=== PATIENT | female | born 1950 | race Caucasian/White ===

== ENCOUNTER 2020-03-28 09:49 | Day surgery (SDC) | payer MEDICARE, OTHER ==
[~2020-03-28 09:49] MED LIST: Acetaminophen 325 MG Tab PO SCH; EPINEPHrine 1 MG/ML SDV ONE; Lidocaine 1%/Sod Bicarbonate in NS 8.4% 1 ML Syringe IDERM PRN; Morphine 8 MG, EPINEPHrine 0.3 MG, Cefuroxime 750 MG, Ketorolac 30 MG, Sodium Chloride ... PRN; Pregabalin 25 MG Cap PO SCH; Ropivacaine 0.5% 5 MG/ML 30 ML SDV ONE; Sodium Chloride 0.9% 10 ML Syringe FLUSH PRN; oxyCODONE ER 10 MG TAB.ER PO SCH
[2020-03-28] MEDS: Lactated Ringers 1,000 ML IV SCH ×2 (10:15→16:32)
[2020-03-28] MEDS ORDERED: Bupivacaine 0.25% 10 ML SDV ONE (10:16)
[2020-03-28] MEDS ORDERED: Vancomycin 1 GM SDV ONE (10:16)
--- NOTE | 2020-03-28 10:20 | PCM.PREANE ---
Preanesthetic Assessment - Procedure Proposed Procedure: Left total knee arthroplasty - Anesthesia/Transfusion/Family Hx Anesthesia History: No Prior Anesthesia Family History of Anesthesia Reaction: No Transfusion History: No Prior Transfusion(s) - Review of Systems General: No Symptoms Pulmonary: No Symptoms Cardiovascular: No Symptoms Gastrointestinal: No Symptoms Neurological: No Symptoms Other: Reports: Easy Bruising, Thyroid Problems (hypothyroid) - Physical Assessment NPO Status Date: 03/27/20 NPO Status Time: 00:00 Height: 1.63 m Weight: 75.6 kg ASA Class: 2 Mental Status: Alert & Oriented x3 Dentition: Reports: Normal Dentition, Friona(s) Thyro-Mental Finger Breadths: 3 Mouth Opening Finger Breadths: 3 ROM/Head Extension: Full Lungs: Clear to Auscultation, Normal Respiratory Effort Cardiovascular: Regular Rate, Regular Rhythm - Lab Values: Laboratory Last Values MRSA (PCR) Negative 03/16/20 15:45 - Imaging/EKG Impressions: EKG SR rate 75 - Allergies Allergies/Adverse Reactions: Allergies Allergy/AdvReac Type Severity Reaction Status Date / Time No Known Allergies Allergy Verified 03/25/20 12:28 - Anesthesia Plan Pre-Op Medication Ordered: None - Acknowledgements Anesthesia Type Planned: Spinal, Regional Block (adductor canal block for post- op pain control) Pt an Appropriate Candidate for the Planned Anesthesia: Yes Alternatives and Risks of Anesthesia Discussed w Pt/Guardian: Yes Pt/Guardian Understands and Agrees with Anesthesia Plan: Yes PreAnesthesia Questionnaire HEENT History: Reports: Impaired Vision Cardiovascular History: Reports: Hypertension Respiratory History: Reports: Other (See Below) Other Respiratory History: cough, pharyngitis Gastrointestinal History: Reports: Colon Polyp, GERD Genitourinary History: Reports: Renal Calculus, Other (See Below) Other Genitourinary History: CKD III 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 Musculoskeletal History: Reports: Arthritis Neurological History: Reports: Other (See Below) Other Neuro History: tremor Psychiatric History: Reports: None Endocrine/Metabolic History: Reports: Hypothyroidism Hematologic History: Reports: None Immunologic History: Reports: None Oncologic (Cancer) History: Reports: None Dermatologic History: Reports: Other (See Below) Other Dermatologic History: lip lesion - Past Surgical History Head Surgeries/Procedures: Reports: None HEENT Surgical History: Reports: None Respiratory Surgical History: Reports: None GI Surgical History: Reports: Colonoscopy Female Surgical History: Reports: None Male Surgical History: Reports: None Endocrine Surgical History: Reports: None Neurological Surgical History: Reports: None Musculoskeletal Surgical History: Reports: Arthroscopic Knee, Other (See Below) Other Musculoskeletal Surgeries/Procedures:: right ankle/foot surgery Oncologic Surgical History: Reports: None Dermatological Surgical History: Reports: None - SUBSTANCE USE Tobacco Use Status *Q: Former Tobacco User Tobacco Use Within Last Twelve Months: No Second Hand Smoke Exposure: No Days Per Week of Alcohol Use: 1 Number of Drinks Per Day: 0 Total Drinks Per Week: 0 Recreational Drug Use History: No - HOME MEDS Home Medications: Home Meds Losartan/Hydrochlorothiazide [Losartan-HCTZ 100-25 MG] 1 tab PO DAILY 09/22/14 [History] Multivitamin [Multivitamins] 1 each PO DAILY 03/09/16 [History] Ascorbic Acid [Vitamin C] 1,000 mg PO DAILY 03/25/20 [History] Biotin 1 mg PO DAILY 03/25/20 [History] Calcium Citrate/Vitamin D3 [Citracal + D Maximum Caplet] 1 tab PO DAILY 03/25/20 [History] Cholecalciferol (Vitamin D3) [Vitamin D3] 1,000 unit PO DAILY 03/25/20 [History] Docusate Sodium [Stool Softener] 100 mg PO DAILY 03/25/20 [History] Aspirin [Aspirin EC] 325 mg PO BID #84 tab 03/28/20 [Rx] Cyclobenzaprine [Flexeril] 10 mg PO BID PRN #20 tab 03/28/20 [Rx] oxyCODONE 5 - 10 mg PO Q4H PRN #60 tab 03/28/20 [Rx] - CURRENT (IN HOUSE) MEDS Current Meds: Current Medications Acetaminophen (Tylenol) 975 mg PO ONETIME PHILOMENA Stop: 03/28/20 18:00 Last Admin: 03/28/20 10:00 Dose: 975 mg Documented by: Morphine Sulfate 8 mg/Epinephrine HCl 0.3 mg/Cefuroxime Sodium 750 mg/Ketorolac Tromethamine 30 mg/Sodium Chloride 7.9 ml 0 mg .XX ASDIRECTED PRN PRN Reason: Pain Stop: 03/28/20 23:00 Lactated Ringer's (Ringers, Lactated) 1,000 mls @ 125 mls/hr IV ASDIRECTED PHILOMENA Stop: 03/28/20 23:00 Lidocaine/Sodium Bicarbonate (Buffered Lidocaine 1% In Ns 8.4%) 0.25 ml IDERM ONETIME PRN PRN Reason: Prior to IV Start Stop: 03/28/20 18:00 Oxycodone HCl (Oxycontin) 10 mg PO ONETIME PHILOMENA Stop: 03/28/20 18:00 Pregabalin (Lyrica) 50 mg PO ONETIME PHILOMENA Stop: 03/28/20 18:00 Last Admin: 03/28/20 10:00 Dose: 50 mg Documented by: Sodium Chloride (Saline Flush) 10 ml FLUSH ASDIRECTED PRN PRN Reason: Keep Vein Open Stop: 03/28/20 18:00 Discontinued Medications Morphine Sulfate 8 mg/Epinephrine HCl 0.3 mg/Cefuroxime Sodium 750 mg/Ketorolac Tromethamine 30 mg/Sodium Chloride 7.9 ml 0 mg .XX ASDIRECTED PRN PRN Reason: Pain Epinephrine HCl (Adrenalin) Confirm Administered Dose 1 mg .ROUTE .STK-MED ONE Stop: 03/28/20 07:20 Ropivacaine (Naropin 0.5%) Confirm Administered Dose 30 ml .ROUTE .STK-MED ONE Stop: 03/28/20 07:21
[2020-03-28] MEDS ORDERED: Propofol 200 MG/20 ML SDV ONE ×3 (10:54→12:28)
[2020-03-28] MEDS ORDERED: fentaNYL 100 MCG/2 ML SDV ONE (10:54)
[2020-03-28] MEDS ORDERED: ceFAZolin 1 GM Vial ONE (10:55)
[2020-03-28] MEDS ORDERED: Lactated Ringers 1,000 ML ONE (11:42)
[2020-03-28] MEDS ORDERED: ePHEDrine Sulfate/0.9% NaCl/Pf 25 MG/5 ML SYRINGE IV ONE (12:32)
[2020-03-28] MEDS ORDERED: Morphine 8 MG, EPINEPHrine 0.3 MG, Cefuroxime 750 MG, Ketorolac 30 MG, Sodium Chloride ... PRN ×5 (12:35)
--- NOTE | 2020-03-28 13:03 | PCM.POSTAN ---
POST ANESTHESIA ASSESSMENT - MENTAL STATUS Mental Status: Alert, Oriented - VITAL SIGNS Vital Signs: Last Vital Signs Temp 36.7 C 03/28/20 10:00 Pulse 72 03/28/20 10:00 Resp 16 03/28/20 10:00 BP 132/85 03/28/20 10:00 Pulse Ox 98 03/28/20 10:00 - RESPIRATORY Respiratory Status: Respiratory Rate WNL, Airway Patent, O2 Saturation Stable - CARDIOVASCULAR CV Status: Pulse Rate WNL, Blood Pressure Stable - GASTROINTESTINAL GI Status: No Symptoms - PAIN Pain Score: 0 - POST OP HYDRATION Hydration Status: Adequate & Stable - OBSERVATIONS Free Text/Narrative:: no anesthesia complications noted
--- NOTE | 2020-03-28 13:20 | PCM.SN.2 ---
- Free Text/Narrative Note: Left selective femoral nerve block at the adductor canal for post-procedure pain control under US guidance requested by Dr. Tijerina. Time Out: 1305 Start: 1305 End: 1313 Chart reviewed. Consent signed. Questions answered. Appropriate monitors applied. Time out performed. Left mid-shaft femur identified with ultrasound, scanning medially of femur, the femoral artery in the adductor canal visualized, and the femoral nerve located laterally to the artery. The skin was prepped lateral to the ultrasound probe with chlorahexadine times two. The 21ga 4 insulated block needle was inserted under direct ultrasound guidance into the adductor canal. 25 mL of 0.5% ropivacaine with 1:200,000 epinephrine was injected circumferentially around the nerve with intermittent negative aspiration noted. Patient tolerated the procedure well. Sterile technique noted along with sterile gloves, mask, and sterile probe cover. See picture on progress note and vital signs on nurses notes. Block completed in PACU. Denzel Ceballos CRNA
[2020-03-28] MEDS ORDERED: oxyCODONE 5 MG Tab PO PRN (14:54)
[2020-03-28] MEDS ORDERED: Cyclobenzaprine 10 MG Tab PO PRN (14:55)
--- NOTE | 2020-03-28 15:09 | PCM48HPAN ---
Post Anesthesia Note - EVALUATION WITHIN 48HRS OF ANESTHETIC Vital Signs in Normal Range: Yes Patient Participated in Evaluation: Yes Respiratory Function Stable: Yes Airway Patent: Yes Cardiovascular Function Stable: Yes Hydration Status Stable: Yes Pain Control Satisfactory: Yes Nausea and Vomiting Control Satisfactory: Yes Mental Status Recovered: Yes Vital Signs: Last Vital Signs Temp 97.8 F 03/28/20 14:35 Pulse 78 03/28/20 14:35 Resp 14 03/28/20 14:35 BP 113/69 03/28/20 14:35 Pulse Ox 98 03/28/20 14:35
[2020-03-28] MEDS ORDERED: diphenhydrAMINE 25 MG Cap PO ONE (17:47)
[2020-03-28 18:55] VITALS: BP 126/75; PULSE 94
--- NOTE | 2020-03-31 14:58 | CR ---
PROCEDURE INFORMATION: Exam: XR Left Knee Exam date and time: 03/28/2020 1:02 PM Age: 69 years old Clinical indication: Condition or disease; Joint replacement status; Patient HX: Post-op left knee replacement films TECHNIQUE: Imaging protocol: XR Left knee. Views: 1 or 2 views. COMPARISON: No relevant prior studies available. FINDINGS: Bones/joints: Status post total knee replacement. No evidence of complications. There is no evidence of joint malalignment or dislocation. Soft tissues: Air noted within the surrounding soft tissues. IMPRESSION: 1. Status post total knee replacement. No evidence of complications. 2. No evidence of acute dislocation. Thank you for allowing us to participate in the care of your patient. Dictated and Authenticated by: Mir Rodriguez DO 03/28/2020 2:50 PM Central Time ([place] & [place]) J[place]AN
--- NOTE | 2020-04-05 10:26 | PCM.OPNOTE ---
- General Post-Op/Procedure Note Date of Surgery/Procedure: 03/28/20 Operative Procedure(s): left total knee arthroplasty Pre Op Diagnosis: left knee osteoarthrosis Post-Op Diagnosis: Same Anesthesia Technique: Local, MAC, Spinal Primary Surgeon: Surya Tijerina Anesthesia Provider: Denzel Ceballos [employer]: Quiana Kirkpatrick [employer]: Sarah Beth Goetz EBEmory in mLs: 100 Complications: None Condition: Good Free Text/Narrative:: 4/4 9mm 32x10
--- NOTE | 2020-04-08 10:14 | OR ---
DATE OF OPERATION: 03/28/2020 SURGEON: Surya Tijerina MD OPERATION PERFORMED: Left total knee arthroplasty. PREOPERATIVE DIAGNOSIS: Left knee osteoarthrosis. POSTOPERATIVE DIAGNOSIS: Left knee osteoarthrosis. ANESTHESIA: Local MAC with spinal. ANESTHESIA PROVIDER: August Navarro CRNA [place] OPERATOR: 1. Quiana Kirkpatrick PA-C. 2. Sarah Beth Goetz LPN. ESTIMATED BLOOD LOSS: 100 mL. COMPLICATIONS: None. CONDITION: Stable. IMPLANTS: 1. Mary size 4 press-fit CR femur. 2. Toomsuba size 4 press-fit tibial base plate. 3. Toomsuba size 4, 9 mm CS polyethylene insert. 4. Toomsuba size 32 x 10 mm press-fit asymmetric patella. DESCRIPTION OF PROCEDURE: The patient was identified in the preop holding area. Proper site was marked and identified by the surgeon. The patient was taken back to the operating theater. After adequate anesthesia, the patient's left lower extremity had a nonsterile tourniquet applied and it was sterilely prepped and draped in the usual sterile fashion. OR time-out was performed. The patient received 2 g IV Ancef. At this time, the left lower extremity was exsanguinated. Tourniquet was insufflated to 300 mmHg. Standard medial parapatellar incision was made. Medial parapatellar arthrotomy was created. Deep fibers of the MCL were raised and anterior fat pad was resected. At this time, attention was turned to the patella. Patella measured 24, it was resected to a 14 for a 32 x 10 mm patella. Drill holes were then drilled and found to be in adequate position. The drill was then drilled in the distal femur and the intramedullary distal femoral cutting guide was then placed. 8 mm was resected off the distal femur and was found to be an adequate resection. Sizing guide was placed. It was found to be a size 4 press-fit CR femur that was shown on the implant record at the beginning of this dictation. The drill holes were drilled for the epicondylar axis using Whitesides line and epicondyles as reference. At this time, the 4-in- 1 cutting block was placed. An anterior posterior and anterior and posterior chamfer cuts were then completed. Attention was turned to the tibia. The posterior medial lateral retractors were placed. The extramedullary tibial guide was placed. It was placed in the old footprint of the ACL. It was aligned with the center of the ankle and 0 degrees of slope, 9 mm was then resected off the unaffected side. There was found to be an acceptable reduction. At this time, posterior osteophytes were removed along with medial and lateral meniscus. A trial implant was placed with a correct sized tibia that was mentioned at the beginning of the dictation. A Toomsuba size 4, 9 mm CS polyethylene insert was then placed. The patient's knee was brought through range of motion. The patella was tracking centrally and was stable to varus and valgus stress. Alignment was found to be roughly at 0 degrees. The tibia was stamped and drilled in proper rotation. The universal tibial base plate was impacted in place. Next, the Toomsuba size 4 press-fit CR femur impacted into place and the Mary size 4, 9 mm CS polyethylene insert was placed. The patient's knee was brought into full extension. The patella was then press-fit in place at this time. Tourniquet was deflated. One liter dilute Betadine solution was irrigated through the knee along with 3 L of pulse lavage irrigation with Ancef. Periarticular injection was then completed. The patient's knee was brought through a range of motion. Once the cement had time to set up and it was found to be stable to varus valgus stress, the patella was tracking centrally with full range of motion. At this time, a #2 barbed suture was used for closure of the medial parapatellar arthrotomy. Topical tranexamic acid was placed. 2-0 Vicryl was used subcutaneously, Prineo was used for the skin. The patient tolerated the procedure well and was sent to the PACU in stable condition. MMODAL /[id number]
== END 2020-03-28 18:40 | disposition home or self-care (01) ==
LOC: JD.SDS 09:49 → EDSTATUS 13:15 → JD.SDS 18:40
PROVIDERS: ATTEND Orthopaedic Surgery
DX: M17.12 Unilateral primary osteoarthritis, left knee (principal); E03.9 Hypothyroidism, unspecified; I12.9 Hypertensive chronic kidney disease with stage 1 through stage 4 chronic kidney disease, or unspecified chronic kidney disease; N18.30 Chronic kidney disease, stage 3 unspecified; Z79.899 Other long term (current) drug therapy; Z87.891 Personal history of nicotine dependence; Z01.812 Encounter for preprocedural laboratory examination; Z20.828 Contact with and (suspected) exposure to other viral communicable diseases
CPT/HCPCS: 01402; 64450; 73560-26-LT; 73560-LT; 87641; 97162-GP; 97165-GO; A9270-GY; C1776; J0171; J0690; J2370; J2704; J2795; J3010; J3370; J3490; J7120; U0002

== ENCOUNTER 2020-08-01 08:38 | Day surgery (SDC) | payer MEDICARE, OTHER ==
[~2020-08-01 08:38] MED LIST changes: -Acetaminophen 325 MG Tab PO SCH; -EPINEPHrine 1 MG/ML SDV ONE; +Lactated Ringers 1,000 ML IV SCH; -Morphine 8 MG, EPINEPHrine 0.3 MG, Cefuroxime 750 MG, Ketorolac 30 MG, Sodium Chloride ... PRN; -Pregabalin 25 MG Cap PO SCH; -Ropivacaine 0.5% 5 MG/ML 30 ML SDV ONE; -oxyCODONE ER 10 MG TAB.ER PO SCH
[2020-08-01] MEDS ORDERED: oxyCODONE ER 10 MG TAB.ER PO ONE (09:00)
[2020-08-01] MEDS ORDERED: Pregabalin 25 MG Cap PO ONE ×2 (09:00→09:04)
[2020-08-01] MEDS ORDERED: Acetaminophen 325 MG Tab PO ONE (09:00)
--- NOTE | 2020-08-01 10:14 | PCM.PREANE ---
Preanesthetic Assessment - Procedure Proposed Procedure: Right total knee arthroplasty - Anesthesia/Transfusion/Family Hx Anesthesia History: No Prior Anesthesia Family History of Anesthesia Reaction: No Transfusion History: No Prior Transfusion(s) - Review of Systems General: No Symptoms Pulmonary: No Symptoms Cardiovascular: No Symptoms Gastrointestinal: No Symptoms Neurological: No Symptoms Other: Reports: Thyroid Problems (hypothyroid not on meds any more) - Physical Assessment NPO Status Date: 07/31/20 NPO Status Time: 00:00 Height: 1.63 m Weight: 73.5 kg ASA Class: 2 Mental Status: Alert & Oriented x3 Airway Class: Mallampati = 1 Dentition: Reports: Normal Dentition, [place](s) Thyro-Mental Finger Breadths: 3 Mouth Opening Finger Breadths: 3 ROM/Head Extension: Full Lungs: Clear to Auscultation, Normal Respiratory Effort Cardiovascular: Regular Rate, Regular Rhythm - Imaging/EKG Impressions: EKG sr rate 75 - Allergies Allergies/Adverse Reactions: Allergies Allergy/AdvReac Type Severity Reaction Status Date / Time No Known Allergies Allergy Verified 03/25/20 12:28 - Anesthesia Plan Pre-Op Medication Ordered: None - Acknowledgements Anesthesia Type Planned: Spinal Pt an Appropriate Candidate for the Planned Anesthesia: Yes Alternatives and Risks of Anesthesia Discussed w Pt/Guardian: Yes Pt/Guardian Understands and Agrees with Anesthesia Plan: Yes PreAnesthesia Questionnaire HEENT History: Reports: Impaired Vision Cardiovascular History: Reports: Hypertension Respiratory History: Reports: Other (See Below) Other Respiratory History: cough, pharyngitis Gastrointestinal History: Reports: Colon Polyp, GERD Genitourinary History: Reports: Other (See Below) Other Genitourinary History: CKD III 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 Musculoskeletal History: Reports: Arthritis Neurological History: Reports: Other (See Below) Other Neuro History: tremor Psychiatric History: Reports: None Endocrine/Metabolic History: Reports: Hypothyroidism Hematologic History: Reports: None Immunologic History: Reports: None Oncologic (Cancer) History: Reports: None Dermatologic History: Reports: Other (See Below) Other Dermatologic History: lip lesion - Past Surgical History Head Surgeries/Procedures: Reports: None HEENT Surgical History: Reports: None Respiratory Surgical History: Reports: None GI Surgical History: Reports: Colonoscopy Endocrine Surgical History: Reports: None Neurological Surgical History: Reports: None Musculoskeletal Surgical History: Reports: Arthroscopic Knee, Other (See Below) Other Musculoskeletal Surgeries/Procedures:: right ankle/foot surgery Oncologic Surgical History: Reports: None Dermatological Surgical History: Reports: None - SUBSTANCE USE Tobacco Use Status *Q: Former Tobacco User Tobacco Use Within Last Twelve Months: No Second Hand Smoke Exposure: No Days Per Week of Alcohol Use: 1 Number of Drinks Per Day: 0 Total Drinks Per Week: 0 Recreational Drug Use History: No - HOME MEDS Home Medications: Home Meds Losartan/Hydrochlorothiazide [Losartan-HCTZ 100-25 MG] 1 tab PO DAILY 09/22/14 [History] Multivitamin [Multivitamins] 1 each PO DAILY 03/09/16 [History] Ascorbic Acid [Vitamin C] 1,000 mg PO DAILY 03/25/20 [History] Biotin 1 mg PO DAILY 03/25/20 [History] Calcium Citrate/Vitamin D3 [Citracal + D Maximum Caplet] 1 tab PO DAILY 03/25/20 [History] Cholecalciferol (Vitamin D3) [Vitamin D3] 1,000 unit PO DAILY 03/25/20 [History] Docusate Sodium [Stool Softener] 100 mg PO DAILY 03/25/20 [History] Aspirin [Aspirin EC] 325 mg PO BID #84 tab 03/28/20 [Rx] Cyclobenzaprine [Flexeril] 10 mg PO BID PRN #20 tab 03/28/20 [Rx] oxyCODONE 5 - 10 mg PO Q4H PRN #60 tab 03/28/20 [Rx] Aspirin [Aspirin EC] 325 mg PO BID #84 tab 07/30/20 [Rx] Cyclobenzaprine [Flexeril] 5 mg PO BID PRN #20 tab 07/30/20 [Rx] oxyCODONE 5 - 10 mg PO Q4H PRN #40 tab 07/30/20 [Rx] - CURRENT (IN HOUSE) MEDS Current Meds: Current Medications Morphine Sulfate 8 mg/Epinephrine HCl 0.3 mg/Cefuroxime Sodium 750 mg/Ketorolac Tromethamine 30 mg/Sodium Chloride 7.9 ml 0 mg .XX ASDIRECTED PRN PRN Reason: Pain Stop: 08/01/20 13:00 Lactated Ringer's (Ringers, Lactated) 1,000 mls @ 125 mls/hr IV ASDIRECTED PHILOMENA Stop: 08/01/20 23:00 Lidocaine/Sodium Bicarbonate (Buffered Lidocaine 1% In Ns 8.4%) 0.25 ml IDERM ONETIME PRN PRN Reason: Prior to IV Start Stop: 08/01/20 18:00 Sodium Chloride (Saline Flush) 10 ml FLUSH ASDIRECTED PRN PRN Reason: Keep Vein Open Stop: 08/01/20 18:00 Discontinued Medications Acetaminophen (Tylenol) 975 mg PO NOW ONE Stop: 08/01/20 09:01 Last Admin: 08/01/20 09:01 Dose: 975 mg Documented by: Oxycodone HCl (Oxycontin) 10 mg PO ONETIME ONE Stop: 08/01/20 09:01 Last Admin: 08/01/20 09:02 Dose: 10 mg Documented by: Pregabalin (Lyrica) 25 mg PO ONETIME ONE Stop: 08/01/20 09:01 Last Admin: 08/01/20 09:03 Dose: 25 mg Documented by: Pregabalin (Lyrica) 25 mg PO ONETIME ONE Stop: 08/01/20 09:05 Last Admin: 08/01/20 09:15 Dose: 25 mg Documented by: Tranexamic Acid (Cyklokapron) Confirm Administered Dose 1,000 mg .ROUTE .STK-MED ONE Stop: 08/01/20 09:33 Vancomycin HCl (Vancomycin) Confirm Administered Dose 1 gm .ROUTE .STK-MED ONE Stop: 08/01/20 09:33
[2020-08-01] MEDS ORDERED: Propofol 200 MG/20 ML SDV ONE ×3 (10:24→12:32)
[2020-08-01] MEDS ORDERED: Ondansetron 4 MG/2 ML SDV ONE (10:24)
[2020-08-01] MEDS ORDERED: fentaNYL 100 MCG/2 ML SDV ONE (10:25)
[2020-08-01] MEDS ORDERED: Ketorolac 30 MG/ML SDV ONE (10:25)
[2020-08-01] MEDS ORDERED: ceFAZolin 1 GM Vial ONE (10:25)
[2020-08-01] MEDS ORDERED: Lidocaine 1% 4 ML ONE (10:25)
[2020-08-01] MEDS ORDERED: Midazolam 1 MG/ML 2 ML SDV ONE (10:25)
[2020-08-01] MEDS ORDERED: ePHEDrine 50 MG/ML SDV ONE (11:52)
[2020-08-01] MEDS: Morphine 8 MG, EPINEPHrine 0.3 MG, Cefuroxime 750 MG, Ketorolac 30 MG, Sodium Chloride ... PRN ×10 (12:12→12:42)
[2020-08-01] MEDS: Vancomycin 1 GM SDV ONE ×2 (12:12→12:57)
[2020-08-01] MEDS ORDERED: Vancomycin 1 GM SDV ONE (12:50)
[2020-08-01] MEDS ORDERED: Lactated Ringers 1,000 ML ONE ×2 (12:55→12:56)
[2020-08-01] MEDS ORDERED: Ropivacaine 0.5% 5 MG/ML 30 ML SDV ONE (13:19)
[2020-08-01] MEDS ORDERED: EPINEPHrine 1 MG/ML SDV ONE (13:19)
--- NOTE | 2020-08-01 13:22 | PCM.POSTAN ---
POST ANESTHESIA ASSESSMENT - MENTAL STATUS Mental Status: Alert, Oriented - VITAL SIGNS Vital Signs: Last Vital Signs Temp 36.2 C 08/01/20 08:45 Pulse 70 08/01/20 08:45 Resp 16 08/01/20 08:45 BP 121/80 08/01/20 08:45 Pulse Ox 97 08/01/20 08:45 - RESPIRATORY Respiratory Status: Respiratory Rate WNL, Airway Patent, O2 Saturation Stable, Supplemental Oxygen - CARDIOVASCULAR CV Status: Pulse Rate WNL, Blood Pressure Stable - GASTROINTESTINAL GI Status: No Symptoms - PAIN Pain Score: 0 - POST OP HYDRATION Hydration Status: Adequate & Stable - OBSERVATIONS Free Text/Narrative:: NO ANESTHESIA COMPLICATIONS NOTED
--- NOTE | 2020-08-01 13:47 | PCM.SN.2 ---
- Free Text/Narrative Note: Right selective femoral nerve block at the adductor canal for post-procedure pain control under US guidance requested by Dr. Tijerina. Time Out: 1330 Start: 1330 End: 133 Chart reviewed. Consent signed. Questions answered. Appropriate monitors applied. Time out performed. Right mid-shaft femur identified with ultrasound, scanning medially of femur, the femoral artery in the adductor canal visualized, and the femoral nerve located laterally to the artery. The skin was prepped lateral to the ultrasound probe with chlorahexadine times two. The 21ga 4 insulated block needle was inserted under direct ultrasound guidance into the adductor canal. 25mL of 0.5% ropivacaine with 1:200,000 epinephrine was injected circumferentially around the nerve with intermittent negative aspiration noted. Patient tolerated the procedure well. Sterile technique noted along with sterile gloves, mask, and sterile probe cover. See picture on progress note and vital signs on nurses notes. Block completed in PACU. Denzel Ceballos CRNA
--- NOTE | 2020-08-01 14:29 | CR ---
Right knee: AP and lateral views of the right knee were obtained. Comparison: Prior right knee CT study of 07/19/20. Knee prosthesis is noted. Components are aligned. Three calcifications are seen posteriorly. These presumably are dystrophic. Two calcifications are noted anteriorly to the quadriceps tendon which are felt to be due to prior trauma. Patellar prosthesis is seen. No acute osseous abnormality is appreciated. Impression: 1. Small soft tissue calcifications. 2. Satisfactory postop radiographic appearance of recently placed right knee prosthesis. Diagnostic code #2
[2020-08-01] MEDS ORDERED: oxyCODONE 5 MG Tab PO PRN (14:56)
--- NOTE | 2020-08-01 15:15 | PCM48HPAN ---
Post Anesthesia Note - EVALUATION WITHIN 48HRS OF ANESTHETIC Vital Signs in Normal Range: Yes Patient Participated in Evaluation: Yes Respiratory Function Stable: Yes Airway Patent: Yes Cardiovascular Function Stable: Yes Hydration Status Stable: Yes Pain Control Satisfactory: Yes Nausea and Vomiting Control Satisfactory: Yes Mental Status Recovered: Yes Vital Signs: Last Vital Signs Temp 36.5 C 08/01/20 14:55 Pulse 78 08/01/20 14:55 Resp 14 08/01/20 14:55 BP 117/78 08/01/20 14:55 Pulse Ox 96 08/01/20 14:55 - COMMENTS/OBSERVATIONS Free Text/Narrative:: no anesthesia complications noted
[2020-08-01 16:15] VITALS: BP 131/88; PULSE 95
--- NOTE | 2020-08-01 16:40 | PCM.OPNOTE ---
- General Post-Op/Procedure Note Date of Surgery/Procedure: 08/01/20 Operative Procedure(s): right total knee arthroplasty with [employer] Pre Op Diagnosis: right knee osteoarthrosis Post-Op Diagnosis: Same Anesthesia Technique: Local, MAC, Spinal Primary Surgeon: Surya Tijerina Anesthesia Provider: Denzel Ceballos Health Aide: Quiana Kirkpatrick Health Aide: Sarah Beth Goetz EBL in mLs: 400 Complications: None Condition: Good Free Text/Narrative:: Intake & Output 08/01/20 08/01/20 08/01/20 06:59 14:59 22:59 Intake Total 300 Balance 300 5 femur 4 tibia 9mm 32x10
--- NOTE | 2020-08-12 08:45 | OR ---
DATE OF OPERATION: 08/01/2020 SURGEON: Surya Tijerina MD OPERATION PERFORMED: Right total knee arthroplasty with Evan robotics. PREOPERATIVE DIAGNOSIS: Right knee osteoarthrosis. POSTOPERATIVE DIAGNOSIS: Right knee osteoarthrosis ANESTHESIA: Local MAC with spinal. ANESTHESIA PROVIDER: Denzel Ceballos CRNA LUBRICATOR GRANULATOR: Quiana Kirkpatrick PA-C, and Sarah Beth Goetz LPN. ESTIMATED BLOOD LOSS: 100 mL. COMPLICATIONS: None. CONDITION: Stable. IMPLANTS: 1. Size 5 press-fit CR femur. 2. Mary size 4 press-fit tibial baseplate. 3. [place] size 4, 9 mm CS polyethylene insert. 4. Mary size 32 x 10 mm press-fit asymmetric patella. DESCRIPTION OF PROCEDURE: The patient was identified in the preoperative holding area. Proper site was marked, identified by surgeon. The patient was taken back to the operating theater where after adequate anesthesia, the patient's right lower extremity had a nonsterile tourniquet applied and was then sterilely prepped and draped in the usual sterile fashion. OR time-out was performed. The patient received 2 g of IV Ancef. The leg brooks boot applied and then was exsanguinated. Tourniquet was insufflated to 250 mmHg. Standard anterior incision was made. Medial parapatellar arthrotomy was created. Deep fibers of the MCL were raised and anterior fat pad was resected. At this time, attention was turned to the patella. Patella measured a 23 and was resected to a 14 for a 32 x 10 mm patella. Drill holes were drilled and found to be adequate. At this time, two 4.0 Schanz pins were then placed intra-incisionally in the femur for the Mary Evan robotic array. Another one was placed on the tibia 3 fingerbreadths below the tibial tubercle. Checkpoints were placed on both the tibia and the femur. Hip center rotation was obtained for the Mary Evan robot as well as the medial and lateral malleoli marked. At this time, 40 points were obtained on both the femur and the tibia for the Mary Evan robotic plan. The patient's knee was brought into full extension. Varus and valgus stresses were applied. The patient's knee was then brought into 90 degrees of flexion and a curved osteotome was used for varus valgus stresses in flexion. At this time, the patient's plan was brought down to 19 mm gaps in both flexion and extension. Roadster robotic arm was then brought in and the straight saw blade was utilized for the tibial cut, the anterior chamfer cut, and the posterior cut. Saw blade was then switched and the posterior chamfer as well as distal femoral cut was completed. Attention was turned to removal of all bony fragments. Medial and lateral meniscus were resected. Posterior osteophytes were removed. Trial implants were then placed with a size 4 tibia and a size 5 femur. 9 mm trial spacer was placed. The patient's knee had full extension. No varus valgus instability noted with the Okta robot. At this time implants were opened on the back table. Distal femur was drilled, femoral holes were drilled, and the tibia was stamped and drilled in the proper rotation . Size [address] femur was [address] in place, 9 mm CS polyethylene insert was impacted into place. The patient's knee was brought into full extension and a 32 x 10 mm press-fit patella was press-fit into place. Tourniquet was deflated, bleeders were cauterized, 400 mL Irrisept irrigation were irrigated through the knee along with 1 L pulse lavage irrigation with Ancef. Topical tranexamic acid and vancomycin powder were applied periarticularly. #2 barbed suture was used for closure of the medial parapatellar arthrotomy, 2-0 Vicryl was used subcutaneously as well as Stratafix and Prineo was used for cutaneous closure. The knee was placed in sterile soft dressing and sent to the PACU in stable condition. MMGILBERT /[id number]
--- NOTE | 2020-08-22 08:51 | OR ---
DATE OF OPERATION: 08/01/2020 SURGEON: Surya Tijerina MD ADDENDUM: Dictator filling in blanks for previous operative report [id number] First blank - with Wiz[employer]er robot Second blank - implants were opened on the back table. Third blank - Distal femur was drilled, femoral holes were drilled, Fourth blank and the tibia was stamped and drilled in the proper rotation . Distal femur was drilled Fifth blank - 2-0 Vicryl was used subcutaneously as well as Stratafix and Prineo was used for cutaneous closure. The knee was placed in sterile soft dressing and sent to the PACU in stable condition. MMODAL /[id number]
== END 2020-08-01 15:55 | disposition home or self-care (01) ==
LOC: JD.SDS 08:38
PROVIDERS: ATTEND Orthopaedic Surgery
DX: M17.11 Unilateral primary osteoarthritis, right knee (principal); E03.9 Hypothyroidism, unspecified; G89.18 Other acute postprocedural pain; I12.9 Hypertensive chronic kidney disease with stage 1 through stage 4 chronic kidney disease, or unspecified chronic kidney disease; N18.30 Chronic kidney disease, stage 3 unspecified; Z87.891 Personal history of nicotine dependence; Z79.899 Other long term (current) drug therapy; Z98.890 Other specified postprocedural states
CPT/HCPCS: 27447; 73560; 97116; 97161; 97165; A9270; C1713; C1776; J0171; J0690; J0697; J1885; J2250; J2270; J2370; J2405; J2704; J2795; J3010; J3370; J7120; 01402; 64450

== ENCOUNTER 2021-05-23 08:48 | Day surgery (SDC) | payer MEDICARE, OTHER ==
[~2021-05-23 08:48] MED LIST changes: +Sodium Chloride 0.9% 10 ML Syringe FLUSH SCH
--- NOTE | 2021-05-23 09:19 | PCM.PREANE ---
Preanesthetic Assessment - Procedure Proposed Procedure: colonoscopy - Anesthesia/Transfusion/Family Hx Anesthesia History: Prior Anesthesia Without Reaction Family History of Anesthesia Reaction: No Transfusion History: No Prior Transfusion(s) - Review of Systems General: No Symptoms Pulmonary: Cough (had covid in late february) Cardiovascular: No Symptoms Gastrointestinal: No Symptoms Neurological: No Symptoms Other: Reports: Thyroid Problems (in past- no meds needed) - Physical Assessment NPO Status Date: 05/23/21 NPO Status Time: 07:00 (12 oz 7up) Vital Signs: Last Vital Signs Temp 98.1 F 05/23/21 08:50 Pulse 68 05/23/21 08:50 Resp 16 05/23/21 08:50 BP 146/93 H 05/23/21 08:50 Pulse Ox 98 05/23/21 08:50 Height: 5 ft 4 in Weight: 75 kg ASA Class: 2 Mental Status: Alert & Oriented x3 Airway Class: Mallampati = 1 Dentition: Reports: Normal Dentition Thyro-Mental Finger Breadths: 3 Mouth Opening Finger Breadths: 3 ROM/Head Extension: Full Lungs: Clear to Auscultation, Normal Respiratory Effort Cardiovascular: Regular Rate, Regular Rhythm - Allergies Allergies/Adverse Reactions: Allergies Allergy/AdvReac Type Severity Reaction Status Date / Time No Known Allergies Allergy Verified 05/22/21 15:12 - Blood Blood Available: No - Acknowledgements Anesthesia Type Planned: MAC Pt an Appropriate Candidate for the Planned Anesthesia: Yes Alternatives and Risks of Anesthesia Discussed w Pt/Guardian: Yes Pt/Guardian Understands and Agrees with Anesthesia Plan: Yes PreAnesthesia Questionnaire HEENT History: Reports: Impaired Vision Cardiovascular History: Reports: Hypertension Respiratory History: Reports: Other (See Below) Other Respiratory History: cough, pharyngitis Gastrointestinal History: Reports: Colon Polyp Genitourinary History: Reports: Renal Calculus (a few years ago), Other (See Below) Other Genitourinary History: CKD III- SEARCH ENGINEER History: Reports: None Musculoskeletal History: Reports: Arthritis Neurological History: Reports: Other (See Below) Other Neuro History: tremor Psychiatric History: Reports: None Endocrine/Metabolic History: Reports: Hypothyroidism Hematologic History: Reports: None Immunologic History: Reports: None Oncologic (Cancer) History: Reports: None Dermatologic History: Reports: Other (See Below) Other Dermatologic History: lip lesion - Past Surgical History Head Surgeries/Procedures: Reports: None HEENT Surgical History: Reports: None Respiratory Surgical History: Reports: None GI Surgical History: Reports: Colonoscopy Female Surgical History: Reports: None Endocrine Surgical History: Reports: None Neurological Surgical History: Reports: None Musculoskeletal Surgical History: Reports: Arthroscopic Knee, Knee Replacement, Other (See Below) Other Musculoskeletal Surgeries/Procedures:: right ankle/foot surgery Oncologic Surgical History: Reports: None Dermatological Surgical History: Reports: None - SUBSTANCE USE Tobacco Use Status *Q: Former Tobacco User Tobacco Use Within Last Twelve Months: No Second Hand Smoke Exposure: No Days Per Week of Alcohol Use: 1 Recreational Drug Use History: No - HOME MEDS Home Medications: Home Meds Losartan/Hydrochlorothiazide [Losartan-HCTZ 100-25 MG] 1 tab PO DAILY 09/22/14 [History] Multivitamin [Multivitamins] 1 each PO DAILY 03/09/16 [History] Ascorbic Acid [Vitamin C] 1,000 mg PO DAILY 03/25/20 [History] Biotin 1 mg PO DAILY 03/25/20 [History] Calcium Citrate/Vitamin D3 [Citracal + D Maximum Caplet] 1 tab PO DAILY 03/25/20 [History] Cholecalciferol (Vitamin D3) [Vitamin D3] 1,000 unit PO DAILY 03/25/20 [History] Aspirin [Aspirin EC] 325 mg PO BID #84 tab 07/30/20 [Rx] Cyclobenzaprine [Flexeril] 5 mg PO BID PRN #20 tab 07/30/20 [Rx] oxyCODONE 5 - 10 mg PO Q4H PRN #40 tab 07/30/20 [Rx] - CURRENT (IN HOUSE) MEDS Current Meds: Current Medications Lactated Ringer's (Ringers, Lactated) 1,000 mls @ 125 mls/hr IV ASDIRECTED PHILOMENA Stop: 05/23/21 23:00 Lidocaine/Sodium Bicarbonate (Lidocaine 1%/Sod Bicarbonate In Ns 8.4% 1 Ml Syringe) 0.25 ml IDERM ONETIME PRN PRN Reason: Prior to IV Start Stop: 05/23/21 18:00 Sodium Chloride (Sodium Chloride 0.9% 10 Ml Syringe) 10 ml FLUSH 0900,2100 PHILOMENA Stop: 05/23/21 18:00 Discontinued Medications Lactated Ringer's (Ringers, Lactated) 1,000 mls @ 125 mls/hr IV ASDIRECTED PHILOMENA Stop: 05/11/21 23:00 Lidocaine/Sodium Bicarbonate (Lidocaine 1%/Sod Bicarbonate In Ns 8.4% 1 Ml Syringe) 0.25 ml IDERM ONETIME PRN PRN Reason: Prior to IV Start Stop: 05/11/21 18:00 Sodium Chloride (Sodium Chloride 0.9% 10 Ml Syringe) 10 ml FLUSH ASDIRECTED PRN PRN Reason: Keep Vein Open Stop: 05/11/21 18:00
[2021-05-23] MEDS ORDERED: Famotidine 20 MG/2 ML SDV IVPUSH ONE (09:43)
[2021-05-23] MEDS ORDERED: Metoclopramide 10 MG/2 ML SDV IVPUSH PRN (09:43)
[2021-05-23] MEDS ORDERED: Citric Acid/Sodium Citrate Solution 30 ML Cup PO ONE (09:45)
[2021-05-23] MEDS ORDERED: Citric Acid/Sodium Citrate Solution 30 ML Cup ONE (09:48)
[2021-05-23] MEDS ORDERED: Propofol 200 MG/20 ML SDV ONE ×2 (09:49→11:05)
[2021-05-23] MEDS ORDERED: Midazolam 1 MG/ML 2 ML SDV ONE (09:49)
[2021-05-23] MEDS ORDERED: Metoclopramide 10 MG/2 ML SDV ONE (09:50)
--- NOTE | 2021-05-23 11:35 | PCM48HPAN ---
Post Anesthesia Note - EVALUATION WITHIN 48HRS OF ANESTHETIC Vital Signs in Normal Range: Yes Patient Participated in Evaluation: Yes Respiratory Function Stable: Yes Airway Patent: Yes Cardiovascular Function Stable: Yes Hydration Status Stable: Yes Pain Control Satisfactory: Yes Nausea and Vomiting Control Satisfactory: Yes Mental Status Recovered: Yes Vital Signs: Last Vital Signs Temp 98.1 F 05/23/21 08:50 Pulse 68 05/23/21 08:50 Resp 16 05/23/21 08:50 BP 146/93 H 05/23/21 08:50 Pulse Ox 98 05/23/21 08:50 Vitals at 1130: 135/88 HR 80 RR 16 972 100% RA
--- NOTE | 2021-05-23 11:45 | PCM.PRNOTE ---
- Free Text/Narrative Note: Date: 05/23/2021 Procedure: screening colonoscopy History: small tubular adenoma removed on screening 5 years ago Endoscopist: Bob Aleman MD Findings: good prep, cecum reached. No polyps. Detailed Report: The patient was taken to the endoscopy suite and placed in left lateral decubitus position. Timeout was performed and monitored anesthesia care was initiated. The anus appeared normal and digital rectal exam was unremarkable. The colonoscope was inserted and advanced all the way to the cecum. There was some redundancy and twisting of the colon but complete colonoscopy was successful. The appendiceal orifice and ileocecal junction were visualized. Prep was very good. The scope was slowly withdrawn and mucosal surfaces carefully inspected. No polyps were identified. There was no diverticular disease and no significant hemorrhoidal disease appreciated. Air was suctioned from the rectum prior to withdrawal of the scope. The patient tolerated the procedure well.
[2021-05-23 11:58] VITALS: BP 128/68; PULSE 77
== END 2021-05-23 12:10 | disposition home or self-care (01) ==
LOC: JD.SDS 08:48
PROVIDERS: ATTEND Surgery
DX: Z12.11 Encounter for screening for malignant neoplasm of colon (principal); E03.9 Hypothyroidism, unspecified; I12.9 Hypertensive chronic kidney disease with stage 1 through stage 4 chronic kidney disease, or unspecified chronic kidney disease; N18.30 Chronic kidney disease, stage 3 unspecified; Z86.010 Personal history of colon polyps; Z79.899 Other long term (current) drug therapy; Z98.890 Other specified postprocedural states; Z87.891 Personal history of nicotine dependence
CPT/HCPCS: A9270; G0105; J2250; J2704; J2765; J3490; J7120; 00812